=== PATIENT | female | born 1985 | race Asian ===

== ENCOUNTER 2018-10-06 19:20 | Emergency (ER) | payer OTHER ==
[~2018-10-06] VITALS: Ht 165.1 cm; Wt 117.9 kg
--- NOTE | 2018-10-06 20:30 | NUR ---
PT PRESENTED TO THE ER WITH A C/O LT FOOT AND LUE PAIN S/P GLF THIS AM. PT STATED THAT SHE FELL AT HOME AND IT DIDN'T FEEL THAT BAD AND SHE TOOK A PLAN TRIP TO [place]. PT STATED THAT THE PAIN BECAME UNBEARABLE ON THE PLANE AND PT TOOK AN ASPIRIN FROM THE REC THERAPIST. PT STATED THAT SHE TOOK A PERCOCET THIS AM, BUT IT DID NOT HELP. PT'S LEFT FOOT IS SORE ON TOP AND C/O PAIN WITH PALPATION. PT CAN SLIGHTLY WIGGLE THE TOES ON THE LEFT FOOT. PT IS C/O LUE PAIN - FOREARM AND ELBOW. PT IS ABLE TO MOVE ALL FINGERS AND MOVE THE ARM UP AND DOWN. PT IS ON THE MONITOR AND CONTINUOUS PULSE OX.
[2018-10-06] MEDS ORDERED: HYDROCODONE/APAP 5/325MG 1 EACH TABLET ONE (20:53)
[2018-10-06] MEDS ORDERED: ONDANSETRON 4 MG TAB.RAPDIS ONE (20:53)
[2018-10-06] MEDS: HYDROCODONE/APAP 5/325MG 1 EACH TABLET PO ONE (20:56)
[2018-10-06] MEDS: ONDANSETRON 4 MG TAB.RAPDIS PO ONE (20:57)
--- NOTE | 2018-10-06 20:57 | NUR ---
XRAY IN PROGRESS AT THE BEDSIDE.
--- NOTE | 2018-10-06 21:19 | NUR ---
LLE ELEVATED ON PILLOWS.
--- NOTE | 2018-10-06 21:24 | NUR ---
XRAY OF LUE IN PROGRESS AT THE BEDSIDE.
--- NOTE | 2018-10-06 22:10 | NUR ---
Mireya NAVARRO PA-C IS AT THE BEDSIDE SPEAKING TO THE PT RE: POC. PT TO GET A CAM WALKER BOOT AND A LUE SLING.
--- NOTE | 2018-10-06 22:30 | NUR ---
PT REC'D THE WALKER BOOT AND THE LUE SLING. PT WAS ABLE TO STAND ON THE LT FOOT, BUT C/O SEVERE PAIN ON THE LT FOOT WHEN SHE TRIED TO AMBULATE.
--- NOTE | 2018-10-06 22:33 | NUR ---
TRIED TO AMBULATE THE PT ONCE MORE AND PT WAS UNABLE TO BEAR WEIGHT ON THE LT FOOT.
--- NOTE | 2018-10-06 22:37 | NUR ---
Mireya NAVARRO PA-C IS AT THE BEDSIDE SPEAKING TO THE PT.
--- NOTE | 2018-10-06 22:44 | NUR ---
PT WANTS TO GO HOME SO THAT SHE CAN EAT, SHOWER AND SLEEP. PT DOES NOT WANT TO STAY IN THE HOSPITAL. PT TOLD NITO BURR THAT SHE WOULD LIKE TO BE ASSISTED TO THE [facility] AND SHE WOULD BE ABLE TO HANDLE EVERYTHING FROM THERE. PT'S VSS. NAD NOTED.
[2018-10-06 22:46] VITALS: BP 123/70
--- NOTE | 2018-10-06 22:54 | NUR ---
PT WAS TAKEN TO THE [facility] VIA WC. PT WAS ABLE TO GET INTO THE [facility] WITH ASSISTANCE.
--- NOTE | 2018-10-06 22:58 | NUR ---
CALLED PT RE: DISK AND IMAGING FINDINGS THAT SHE LEFT BEHIND AT THE BEDSIDE. PT WILL HAVE SOMEONE PICK IT UP TOMORROW.
== END 2018-10-06 22:54 | disposition home or self-care (01) ==
LOC: ER 19:22
DX: S92.355A Nondisplaced fracture of fifth metatarsal bone, left foot, initial encounter for closed fracture (principal); S50.12XA Contusion of left forearm, initial encounter; G43.909 Migraine, unspecified, not intractable, without status migrainosus; Z98.890 Other specified postprocedural states; W01.0XXA Fall on same level from slipping, tripping and stumbling without subsequent striking against object, initial encounter; Y93.01 Activity, walking, marching and hiking; Y92.89 Other specified places as the place of occurrence of the external cause; Y99.8 Other external cause status
CPT/HCPCS: 73090; 73630; 99283; Q0162